=== PATIENT | female | born 1985 | race Caucasian/White ===

== ENCOUNTER 2023-10-06 10:51 | Outpatient (CLI) | payer OTHER, SELFPAY ==
[2023-10-06 11:23] LABS: Basophils Percent Auto 0.5 % (0.2-1.2); Eosinophils Absolute Auto 0.3 K/mm3 (0-0.3); Hematocrit 36.8 % (37.0-47.0); Hemoglobin 12.3 g/dL (12.0-15.0); Immature Granulocyte Absolute 0.09 K/mm3 (0.00-0.031); Lymphocytes Absolute Auto 1.86 K/mm3 (0.9-3.2); Lymphocytes Percent Auto 21.5 % (18.3-44.2); Mean Corpuscular HGB Conc 33.4 g/dl (32-36); Mean Corpuscular Hemoglobin 30.1 pg (26-34); Mean Platelet Volume 10.5 fl (7.4-10.4); Monocytes Absolute Auto 0.4 K/mm3 (0.1-0.6); Platelet Count Result 191 k/mm3 (150-375); Red Blood Count 4.09 M/mm3 (4.2-5.4); Red Cell Distribution Width 13.3 % (11.5-14.5); White Blood Count 8.7 K/mm3 (4.5-10.0)
[2023-10-06 12:23] LABS: HIV 1/2 Ab P24 Ag Result Negative (Negative)
[2023-10-06 12:36] LABS: Hepatitis B Surface Antigen Negative (Negative); Rubella IgG Antibody 7.5 IU/ML
[2023-10-06 13:13] LABS: Rapid Plasma Reagin Non-Reactive (NonReactive)
== END 2023-10-06 10:52 | disposition home or self-care (01) ==
LOC: ANHLAB 10:53
PROVIDERS: PCP Family Medicine; Visit Provider Student in an Organized Health Care Education/Training Program
DX: N94.89 Other specified conditions associated with female genital organs and menstrual cycle (principal)
CPT/HCPCS: 36415; 84702; 85025; 86592; 86644; 86703; 86747; 86762; 86787; 86850; 86900; 86901; 87086; 87088; 87340; G0432

== ENCOUNTER 2024-01-16 08:24 | Outpatient (CLI) | payer OTHER, SELFPAY ==
[2024-01-16 10:15] LABS: Basophils Absolute Auto 0.1 K/mm3 (0.0-0.1); Basophils Percent Auto 0.7 % (0.2-1.2); Eosinophils Absolute Auto 0.3 K/mm3 (0-0.3); Eosinophils Percent Auto 3.2 % (0-4.4); Hematocrit 36.2 % (37.0-47.0); Hemoglobin 11.9 g/dL (12.0-15.0); Immature Granulocyte Absolute 0.44 K/mm3 (0.00-0.031); Immature Granulocyte Percent A 4.2 % (0-0.5); Lymphocytes Absolute Auto 1.29 K/mm3 (0.9-3.2); Lymphocytes Percent Auto 12.5 % (18.3-44.2); Mean Corpuscular HGB Conc 32.9 g/dl (32-36); Mean Corpuscular Hemoglobin 31.1 pg (26-34); Mean Corpuscular Volume 94.5 fl (80-100); Mean Platelet Volume 10.6 fl (7.4-10.4); Monocytes Absolute Auto 0.4 K/mm3 (0.1-0.6); Monocytes Percent Auto 3.5 % (2.6-8.5); Neutrophils Absolute Auto 7.9 K/mm3 (1.3-6.7); Neutrophils Percent Auto 75.9 % (45.5-73.1); Platelet Count Result 163 k/mm3 (150-375); Red Blood Count 3.83 M/mm3 (4.2-5.4); Red Cell Distribution Width 13.2 % (11.5-14.5); White Blood Count 10.4 K/mm3 (4.5-10.0)
[2024-01-16 10:23] LABS: Glucose 1 Hour PP 50gm Dose 154 mg/dL
[2024-01-16 11:04] LABS: HIV 1/2 Ab P24 Ag Result Negative (Negative)
[2024-01-17 11:44] LABS: Rapid Plasma Reagin Non-Reactive (NonReactive)
== END 2024-01-16 08:25 | disposition home or self-care (01) ==
LOC: ANHLAB 08:26
PROVIDERS: PCP Family Medicine; Visit Provider Obstetrics & Gynecology
DX: Z34.90 Encounter for supervision of normal pregnancy, unspecified, unspecified trimester (principal); Z3A.00 Weeks of gestation of pregnancy not specified
CPT/HCPCS: 36415; 82947; 85025; 86592; 86703; G0432

== ENCOUNTER 2024-01-19 09:38 | Observation (INO) | payer OTHER, SELFPAY ==
--- NOTE | 2024-01-19 09:38 | OBADM ---
This patient, Yoly Tejeda, admitted to the OB room OB Post 116 for observation. pt states she has been having vaginal spotting, light brown collar when she wipes. denies contractions. Patient/family oriented to hospital policies and general routines including ID bracelet, bed and alarms, visiting hours, pain management, procedures, bathroom and other care routines, personal items, smoking policy, room service/diet, and visiting hours. Patient/Family are encouraged to report perceived risks to care and to ask questions if they do not understand what they are told or what they should do.
[2024-01-19 09:55] VITALS: BP 127/87; PULSE 93
[2024-01-19 11:43] LABS: Add Urine Microscopic? YES; Appearance Urine Clear (Clear); Bacteria Urine 2+ /hpf; Bilirubin Urine Negative (Negative); Blood Urine 3+ (Negative); Color Urine Yellow (Yellow); Glucose Urine UA Negative (Negative); Ketones Urine Negative (Negative); Leukocyte Esterase Ur 2+ LEU/UL (Negative); Need Manual Microscopic Reviewed; Nitrate Urine Negative (Negative); Non Pathogenic Casts 0-2; Protein Urine Negative (Negative); RBC Urine 0-2 /hpf (0-2); Specific Grav Ur 1.007 (1.001-1.035); Squamous Epithelial Cell Urine Many /hpf (Few); WBC Urine 0-5 /hpf (0-3)
--- NOTE | 2024-01-22 08:16 | PM.OBTRLD ---
OB - Triage/Final Diagnosis Visit Information Reason for evaluation: threatened labor Comments/Additional reasons for admission: I have assessed the risk for this patient, Yoly Tejeda, and determined that she would benefit from observation care. Evaluation Laboratory results: Laboratory Tests 01/19/24 10:10 Urine Color Yellow Urine Appearance Clear Urine pH 8.0 Ur Specific [place] 1.007 Urine Protein Negative Urine Glucose (UA) Negative Urine Ketones Negative Ur Blood (Man) 3+ H Urine Nitrate Negative Urine Bilirubin Negative Urine Urobilinogen 1.0 Ur Leukocyte Esterase 2+ H Add Ur Microanalysis Reviewed Urine RBC 0-2 Urine WBC 0-5 Ur Squamous Epith Cells Many H Urine Bacteria 2+ H Urine Casts 0-2
== END 2024-01-19 11:20 ==
PROVIDERS: Admitting Provider Obstetrics & Gynecology; PCP Family Medicine; Visit Provider Obstetrics & Gynecology
DX: O47.03 False labor before 37 completed weeks of gestation, third trimester (principal); Z3A.32 32 weeks gestation of pregnancy
CPT/HCPCS: 81001; 87086; 87088; G0378; G0379

== ENCOUNTER 2024-03-05 13:15 | Outpatient (CLI) | payer OTHER, SELFPAY ==
--- NOTE | 2024-03-05 13:55 | PM.IMHP ---
H&P: HPI History of Present Illness Date/Time: 03/05/24 13:55 38-year-old 5 para 4 004 female presents for delivery. She has had 1 vaginal delivery followed by 3 C sections, 1st for breech presentation rest repeats. This has been complicated only by advanced maternal age, for which she has had evaluation in all this normal. No other issues or concerns. Also desires permanent sterilization in the form of bilateral salpingectomy. She does understand permanence, failure rate, increased risk of ectopic and regret and strongly desires to proceed. Chief Complaint: Review of Systems Review of Systems: All systems reviewed & are unremarkable except as noted in HPI and below PMFSH Past Medical History Medical History Abnormal glucose tolerance in Hernia Menometrorrhagia Suppression of menses Thrombocytopenia with 1st Surgical History Surgical History Delivery by section 2010- Breech 2014- repeat 2016 - repeat Hx of cholecystectomy Family History Family History Other No pertinent family history in first degree relatives Social History Social History Smoking status: Never smoker Alcohol intake: never Substance use: never Substance use type: does not use Current Housing: Decline to Answer Concerned About Future Housing: Decline to Answer Difficulty Paying Gas/Electric Bills: Decline to Answer Difficulty Paying for Meds: Decline to Answer Currently Unemployed: Decline to Answer Education: Decline to Answer Difficulty w/ Childcare or Family Care: Decline to Answer Living arrangements: with family Occupation/Education: occupation Gender identity (if verbalized by the patient): Female Spiritual care concerns: No Meds Home Medications and Allergies Home Medications Medication Instructions Recorded Confirmed Type docosahexaenoic acid 200 mg mg PO 12/27/23 02/28/24 History capsule ( DHA) Allergies Allergy/AdvReac Type Severity Reaction Status Date / Time Sulfa (Sulfonamide Allergy Unknown Blister Verified 02/28/24 09:07 Antibiotics) sulfanilamide Allergy Unknown Blister Verified 02/28/24 09:07 Exam Resp: Effort & Inspection: normal respiratory effort Auscultation: clear to auscultation bilaterally Cardio: Rate: regular rate Rhythm: regular rhythm GI: Inspection: scar GI Palp: No abdominal tenderness Auscultation: normal bowel sounds : External Female Exam: normal external appearance Speculum Exam - Vagina: normal appearance of the vagina Speculum Exam - Cervix: normal appearance of the cervix Bimanual exam- vagina & uterus: enlarged ( fundal height 40cm heart tone 140) Assessment and Plan Assessment and plan (1) 39 weeks gestation of : Code(s): Z3A.39 - 39 weeks gestation of Status: Acute (2) Previous delivery affecting : Code(s): O34.219 - Maternal care for unspecified type scar from previous delivery Status: Acute (3) Encounter for female sterilization procedure: Code(s): Z30.2 - Encounter for sterilization Status: Acute Plan 1. Proceed with repeat low-transverse section with bilateral salpingectomy.
[2024-03-05 14:07] LABS: Hematocrit 39.6 % (37.0-47.0); Hemoglobin 13.6 g/dL (12.0-15.0); Mean Corpuscular HGB Conc 34.3 g/dl (32-36); Mean Corpuscular Hemoglobin 31.9 pg (26-34); Mean Platelet Volume 11.1 fl (7.4-10.4); Platelet Count Result 168 k/mm3 (150-375); Red Blood Count 4.26 M/mm3 (4.2-5.4); Red Cell Distribution Width 13.2 % (11.5-14.5); White Blood Count 8.8 K/mm3 (4.5-10.0)
[2024-03-06 09:48] LABS: Rapid Plasma Reagin Non-Reactive (NonReactive)
== END 2024-03-05 13:16 | disposition home or self-care (01) ==
LOC: ANHLAB 13:17
PROVIDERS: PCP Family Medicine; Visit Provider Obstetrics & Gynecology
DX: O34.219 Maternal care for unspecified type scar from previous cesarean delivery (principal); Z3A.39 39 weeks gestation of pregnancy; Z30.2 Encounter for sterilization
CPT/HCPCS: 36415; 85027; 86592; 86850; 86900; 86901

== ENCOUNTER 2024-03-06 05:48 | Inpatient (IN) | payer OTHER, SELFPAY ==
--- NOTE | 2024-02-16 16:12 | PC.NURSE ---
requisition for lab draw,C/S pre-op instructions and RSV information sent to patient ,due to pre-admit being phone interview
--- NOTE | 2024-03-05 14:00 | HP_ITS ---
This report was moved to the correct visit on 03/11/2024. The original report was signed by Elpidio Olson MD on 03/05/24 1400. H&P: HPI History of Present Illness Date/Time: 03/05/24 13:55 38-year-old 5 para 4 004 female presents for delivery. She has had 1 vaginal delivery followed by 3 C sections, 1st for breech presentation rest repeats. This has been complicated only by advanced maternal age, for which she has had evaluation in all this normal. No other issues or concerns. Also desires permanent sterilization in the form of bilateral salpingectomy. She does understand permanence, failure rate, increased risk of ectopic and regret and strongly desires to proceed. Chief Complaint: Review of Systems Review of Systems: All systems reviewed & are unremarkable except as noted in HPI and below PMFSH Past Medical History Medical History Abnormal glucose tolerance in Hernia Menometrorrhagia Suppression of menses Thrombocytopenia with 1st Surgical History Surgical History Delivery by section 2011- Breech 2014- repeat 2016 - repeat Hx of cholecystectomy Family History Family History Other No pertinent family history in first degree relatives Social History Social History Smoking status: Never smoker Alcohol intake: never Substance use: never Substance use type: does not use Current Housing: Decline to Answer Concerned About Future Housing: Decline to Answer Difficulty Paying Gas/Electric Bills: Decline to Answer Difficulty Paying for Meds: Decline to Answer Currently Unemployed: Decline to Answer Education: Decline to Answer Difficulty w/ Childcare or Family Care: Decline to Answer Living arrangements: with family Occupation/Education: occupation Gender identity (if verbalized by the patient): Female Spiritual care concerns: No Meds Home Medications and Allergies Home Medications Medication Instructions Recorded Confirmed Type docosahexaenoic acid 200 mg mg PO 12/27/23 02/28/24 History capsule ( DHA) Allergies Allergy/AdvReac Type Severity Reaction Status Date / Time Sulfa (Sulfonamide Allergy Unknown Blister Verified 02/28/24 09:07 Antibiotics) sulfanilamide Allergy Unknown Blister Verified 02/28/24 09:07 Exam Resp: Effort & Inspection: normal respiratory effort Auscultation: clear to auscultation bilaterally Cardio: Rate: regular rate Rhythm: regular rhythm GI: Inspection: scar GI Palp: No abdominal tenderness Auscultation: normal bowel sounds : External Female Exam: normal external appearance Speculum Exam - Vagina: normal appearance of the vagina Speculum Exam - Cervix: normal appearance of the cervix Bimanual exam- vagina & uterus: enlarged ( fundal height 40cm heart tone 140) Assessment and Plan Assessment and plan (1) 39 weeks gestation of : Code(s): Z3A.39 - 39 weeks gestation of Status: Acute (2) Previous delivery affecting : Code(s): O34.219 - Maternal care for unspecified type scar from previous delivery Status: Acute (3) Encounter for female sterilization procedure: Code(s): Z30.2 - Encounter for sterilization Status: Acute Plan 1. Proceed with repeat low-transverse section with bilateral salpingectomy. This report may have been done utilizing a voice recognition system. Attempts have been made to correct errors. However, there may be uncorrected grammatical, spelling, and recognition errors present. Report Initialized date/time: Elpidio Olson MD 03/05/241399 Electronically signed by: Elpidio Olson MD 03/05/241399 [facility]
[2024-03-06] VITALS (47 sets, daily range): BP systolic 86–217; BP diastolic 57–199; PULSE 49–136; RESP 14–18; TEMP 36.2–36.9; O2SAT 66–100; BMI 28.9
[2024-03-06] MEDS: ACETAMINOPHEN 500 MG TABLET 1000 MG PO (06:27)
--- NOTE | 2024-03-06 06:31 | LDADM ---
This patient, Yoly Tejeda, was admitted to Labor/Delivery/Recovery 120 on 03/06/24 at 05:48. Plans for labor, pain management and were discussed with patient. Patient/family oriented to hospital policies and general routines including ID bracelet, bed and alarms, visiting hours, pain management, procedures, bathroom and other care routines, personal items, smoking policy, room service/diet and guest tray routines, security routines, and visiting hours. Patient/Family are encouraged to report perceived risks to care and to ask questions if they do not understand what they are told or what they should do. See OBIX for further documentation.
[2024-03-06] MEDS: LACTATED RINGERS 1,000 ML 125 ML IV CONT (06:36)
--- NOTE | 2024-03-06 07:17 | WPDHPUPDATE1 ---
History and Physical Update Update Date/Time: 03/06/24 07:17 History and Physical has been reviewed, including an updated exam of the patient. There are NO changes in the patient's condition. Risks, benefits, and alternatives have been discussed and questions answered. Patient agrees to proceed with procedure.
[2024-03-06] MEDS: ONDANSETRON INJ 4 MG/2 ML VIAL IV PUSH (07:22)
[2024-03-06] MEDS: FAMOTIDINE 20 MG/2 ML VIAL IV PUSH (07:23)
[2024-03-06 07:43] LABS: HIV 1/2 Ab P24 Ag Result Negative (Negative)
[2024-03-06] MEDS: ceFAZolin 2 GM/D5W 50 ML 2 GM/50 ML BAG IVPB (07:49)
--- NOTE | 2024-03-06 07:50 | P.PNAN_ITS ---
Anes - Initial Pre Proc Eval Procedure: Operation Date: 03/06/24 07:30 Proposed Procedures p Repeat Section with Tubal Ligation - Elpidio Olson MD Date/Time: 03/06/24 07:50 Surgeon: Elpidio Olson MD Pre Op Diagnosis: C/S Patient Data Age: 38 Gender: F Height: 1.6 m Weight: 74 kg Last Vital Signs Pulse 86 03/06/24 06:30 BP 98/83 L 03/06/24 06:30 O2 Del Method Room Air 03/06/24 06:30 Allergies Allergy/AdvReac Type Severity Reaction Status Date / Time Sulfa (Sulfonamide Allergy Unknown Blister Verified 02/28/24 09:07 Antibiotics) sulfanilamide Allergy Unknown Blister Verified 02/28/24 09:07 Home Medications Medication Instructions Recorded Confirmed Type docosahexaenoic acid 200 mg mg PO 12/27/23 02/28/24 History capsule ( DHA) Laboratory Tests 03/06/24 06:46 HIV 1&2 Ab/P24 Ag 4thGn Negative (Negative) Patient hx anesthesia problems: none Family hx anesthesia problems: none Results Review: All pre-operative results and documents have been reviewed as part of the pre- operative evaluation. [facility] Past Medical History Medical History Abnormal glucose tolerance in Hernia Menometrorrhagia Suppression of menses Thrombocytopenia with 1st Surgical History Surgical History Delivery by section 2010- Breech 2013- repeat 2016 - repeat Hx of cholecystectomy Family History Family History Other No pertinent family history in first degree relatives Social History Social History Smoking status: Never smoker Alcohol intake: never Substance use: never Substance use type: does not use Do You Feel Safe in your Home?: Yes Lack of Transportation: No Lack of Food: Never True Current Housing: I Have Housing Concerned About Future Housing: No Difficulty Paying Gas/Electric Bills: No Difficulty Paying for Meds: No Currently Unemployed: No Education: Bachelor's Degree Difficulty w/ Childcare or Family Care: No Living arrangements: with family Occupation/Education: occupation Gender identity (if verbalized by the patient): Female Spiritual care concerns: No Anes - Eval Final PreProcedure Day of Procedure 03/06/24 07:50 Patient weight: normal Heart: regular rate and rhythm Lungs: clear to auscultation and normal air movement Airway: Mallampati scale class II Neurological: alert and oriented Last oral intake: >/= 8 hours ASA classification: II Emergent: no Anesthetic plan: proceed Anesthesia type and monitoring: regional spinal Results Review: All pre-operative results and documents have been reviewed as part of the pre- operative evaluation. Informed Consent: The patient's anesthetic plan and its attendant risks and benefits were discussed with the patient/family/POA. Questions were solicited and answers provided to the satisfaction of the patient/family/POA.
--- NOTE | 2024-03-06 08:44 | W.PM.OBCSD ---
OB - Delivery Note Procedure Delivery date: 03/06/24 Pre-op diagnosis: Previous Delivery and Other (Undesired fertility) Post-op Diagnosis: Same Delivery monitor: External FHT and External Uterine Prior to decision for section, ACOG/SMFM labor guidelines were considered and discussed with the patient and staff. Decision made to proceed with the section.: Yes Procedure Performed: Repeat and Tubal Ligation Surgeon: Elpidio Olson MD Anesthesia type: Spinal Description of Procedure/Findings: patient prepped and draped in usual manner this procedure. Pfannenstiel incision was made and carried down to the fascia which was then extended bilaterally the length of the skin incision. Superiorly and inferiorly dissected away from the rectus muscles and the peritoneum was readily entered. Bladder flap developed without difficulty and uterus was scored a low transverse manner with clear fluid noted. Baby was delivered without difficulty, vertex 1st with nuchal cord noted and reduced. Cord clamped cut placenta was removed manually. Uterus was exteriorized cleared of membranes and clots and closed using 0 Monocryl running interlocking manner with good approximation hemostasis noted. One small area of oozing was rendered hemostatic with a [id number] suture. All subfascial tissue was noted hemostatic and then fascia was approximated using 0 Vicryl from left angle midline and the right angle midline with good approximation noted. Subcutaneous tissue was approximated using 0 plain suture and tessie were used to approximate the skin edges. Prior to returning the uterus to the abdomen, it should be noted that the bilaterally tubes were elevated and doubly knotted suture and removal of tubes bilaterally. After the uterus was returned to the abdomen the tubal stumps were noted be hemostatic and intact. At the end of the procedure patient was sent to recovery room in stable condition. Estimated Blood Loss: 630 Drains: Yes ( Reid) Packing: No Pathology: Yes ( bilateral tubes) Complications: No immediate complications Condition: Stable Disposition: Floor [place] Baby Gestational Age by Date: 39 Infant gender: Male presentation: vertex Placenta delivery description: Manual Removal Cord Vessel Description: 3 Vessels, Nuchal Cord and Reduced
[2024-03-06] MEDS: KETOROLAC 15 MG/ML VIAL (*BKC) IV PUSH ×3 (09:06→21:29)
[2024-03-06] MEDS: HYDROcodone/acetaminophen (*CRX) 10-325 MG TABLET 1 TAB PO (09:06)
[2024-03-06] MEDS: LIDOCAINE 5% PATCH 1 PATCH (09:13)
[2024-03-06] MEDS: fentaNYL CITRATE INJ (*CRX) 100 MCG/2 ML VIAL 50 MCG IV PUSH ×2 (10:49→11:26)
[2024-03-06] MEDS: HYDROmorphon 0.2MG/ML PCA(*CRX 6 MG/30 ML PCA.VIAL 0.5 MG IV CONT (12:22)
[2024-03-06] MEDS: SIMETHICONE 80 MG TAB.CHEW PO ×2 (12:38→17:07)
[2024-03-06] MEDS: ACETAMINOPHEN 325 MG TABLET 650 MG PO ×2 (12:38→21:29)
--- NOTE | 2024-03-06 13:28 | PC.NURSE ---
On 03/06/24, the student, Shirley Crocker, provided care and completed [facility] documentation on this patient. I have reviewed the student's documentation and agree with the findings.
--- NOTE | 2024-03-06 15:21 | PC.NURSE ---
1500. Met with patient to assess and discuss needs related to feeding. Mother states it is her intention to exclusively breastfeed. Infant is currently in level 2 due to low temperature after delivery. Mom just got back to her room after visiting down in level 2 nursery to feed him. Mom reports feeding went well and she nursed for 30 min. We reviewed basics and encouraged mom breastfeed 8-12 times in 24 hours (approximately every 2-3 hours), watching for early feeding cues. If infant is sleepy, unwrap and place baby skin to skin. Discussed signs that infant is effectively , i.e. sufficient voids and stools, jaundice within normal limits, <10% weight loss from . Mother educated on milk production, supply and demand, and expectations for in the immediate period. Encouraged feeding on demand and feeding durations of 15 minutes or greater. Discussed breast/nipple care with good hand hygiene, signs of a correct latch, listening for infant swallows and documenting feedings on the feeding sheet. Mother instructed to call for assistance if will not feed every 3 hours, if there is discomfort with , or if mother has any other questions or concerns. resources provided including the Mom and Baby Guide and name/number on communication board. Mother verbalized understanding. Updated patient?s primary RN with education provided.??
[2024-03-06] MEDS: DOCUSATE SODIUM 100 MG CAPSULE PO (17:07)
[2024-03-06] MEDS: DEXTROSE 5%/0.45% SOD CHL 1,000 ML 125 ML IV CONT (18:50)
[2024-03-07 03:30] VITALS: RESP 12; O2SAT 100
[2024-03-07] MEDS: ACETAMINOPHEN 325 MG TABLET 650 MG PO ×4 (03:48→22:15)
[2024-03-07] MEDS: KETOROLAC 15 MG/ML VIAL (*BKC) IV PUSH (03:54)
[2024-03-07 03:58] VITALS: BP 120/53; PULSE 67; RESP 14; TEMP 37; O2SAT 100
[2024-03-07 05:10] LABS: Basophils Percent Auto 0.3 % (0.2-1.2); Eosinophils Absolute Auto 0.3 K/mm3 (0-0.3); Eosinophils Percent Auto 2.3 % (0-4.4); Hematocrit 32.4 % (37.0-47.0); Hemoglobin 11.3 g/dL (12.0-15.0); Immature Granulocyte Absolute 0.15 K/mm3 (0.00-0.031); Immature Granulocyte Percent A 1.3 % (0-0.5); Lymphocytes Percent Auto 14.2 % (18.3-44.2); Mean Corpuscular HGB Conc 34.9 g/dl (32-36); Mean Corpuscular Hemoglobin 31.7 pg (26-34); Mean Platelet Volume 11.3 fl (7.4-10.4); Monocytes Percent Auto 8.1 % (2.6-8.5); Neutrophils Absolute Auto 8.8 K/mm3 (1.3-6.7); Neutrophils Percent Auto 73.8 % (45.5-73.1); Platelet Count Result 147 k/mm3 (150-375); Red Blood Count 3.56 M/mm3 (4.2-5.4); Red Cell Distribution Width 13.2 % (11.5-14.5); White Blood Count 11.9 K/mm3 (4.5-10.0)
[2024-03-07] MEDS: DOCUSATE SODIUM 100 MG CAPSULE PO ×2 (08:21→17:18)
[2024-03-07] MEDS: SIMETHICONE 80 MG TAB.CHEW PO ×3 (08:22→17:18)
[2024-03-07 08:30] VITALS: BP 110/53; PULSE 74; RESP 18; TEMP 36.6; O2SAT 99
--- NOTE | 2024-03-07 09:41 | P.PNOB_ITS ---
OB - PN: Subj Subjective Date/time seen: 03/07/24 09:41 S: Pain well tolerated. Diet ambulation without difficulty. Voiding after catheter removed without difficulty. O:VSS afebrile Abdomen positive bowel sounds soft, incision covered Labs: Noted A: Postoperative day 1 status post repeat with bilateral salpingectomy. Thus far good postoperative course without issue. P: Routine postoperative care. At this point patient likely will want to stay 2 more days has baby is on antibiotics and she is not in any particular hurry to be discharged. I had discussed with her that on Monday if baby still there she can be converted to no care bed and fill prescriptions etc. and come and go if desires. OB - PN: Obj Data Labs 03/07/24 04:25 Labs: Laboratory Results - last 24 hr 03/07/24 04:25 WBC 11.9 H RBC 3.56 L Hgb 11.3 L Hct 32.4 L MCV 91.0 MCH 31.7 MCHC 34.9 RDW 13.2 Plt Count 147 L MPV 11.3 H Immature Gran % (Auto) 1.3 H Neut % (Auto) 73.8 H Lymph % (Auto) 14.2 L [place] % (Auto) 8.1 Eos % (Auto) 2.3 Baso % (Auto) 0.3 Lymph # (Auto) 1.70 [place] # (Auto) 1.0 H Eos # (Auto) 0.3 Baso # (Auto) 0.0 Abs Immat Gran (auto) 0.15 H Absolute Neuts (auto) 8.8 H Absolute Nucleated RBC 0.000 Nucleated RBC % 0.0 OB - PN A/P Time Spent With Patient Time: Total time spent is greater than 50% in coordination of care (as documented) at patient's floor/unit and/or counseling patient:
--- NOTE | 2024-03-07 09:44 | PM.OBDSVD ---
DS: Admitting Diagnosis Discharge Date 03/09/2024 Admitting Diagnosis DS: Discharge Diagnosis Discharge Diagnosis (1) , delivered: Code(s): O80 - Encounter for full-term uncomplicated delivery Status: Acute OB - DS: Summary OB Procedures : None OB Procedures Intrapartum: low cervical, transverse and Tubal ligation OB Procedures: : None Peripartum Data Procedures: Procedures Operation Date: 03/06/24 07:30 Actual Procedure Side Surgeon p Section Elpidio Olson MD Time Spent with Patient Time attestation: Total time spent providing and/or coordinating discharge services: DS: Data Data Completed and Pending Pending studies at discharge: Pending at discharge 03/06/24 08:34 Surgical [PTH] Routine Labs on day of discharge: Labs from last 24 hours 03/07/24 04:25 WBC 11.9 H RBC 3.56 L Hgb 11.3 L Hct 32.4 L MCV 91.0 MCH 31.7 MCHC 34.9 RDW 13.2 Plt Count 147 L MPV 11.3 H Immature Gran % (Auto) 1.3 H Neut % (Auto) 73.8 H Lymph % (Auto) 14.[address] [place] % (Auto) 8.1 Eos % (Auto) 2.3 Baso % (Auto) 0.3 Lymph # (Auto) 1.70 [place] # (Auto) 1.0 H Eos # (Auto) 0.3 Baso # (Auto) 0.0 Abs Immat Gran (auto) 0.15 H Absolute Neuts (auto) 8.8 H Absolute Nucleated RBC 0.000 Nucleated RBC % 0.0 Discharge Plan Discharge Attending physician on discharge: Elpidio Olson Discharging Clinician: Elpidio Olson Patient Disposition: Home, Self-Care Activity: may shower, no straining, follow weight bearing status and pelvic rest Diet: as tolerated Wound Care Instructions: incision open to air Discharge Instructions: Return to office March 12 or for staple removal. Patient Instructions: Antibiotic Form Stand Alone Forms: General Discharge Information Follow-up/Referrals: Elpidio Olson MD [Physician] - 3 Weeks Discharge Medications: New hydrocodone-acetaminophen 5-325 mg Tablet 1 tablet PO Q3H PRN (Reason: Breakthrough Pain Rated 4-6) Qty: 30 0RF ibuprofen 600 mg Tablet 600 mg PO Q6H Qty: 30 0RF Continued DHA 200 mg capsule PO Date of admission: 03/06/24 05:48 Primary Care Provider: Walt Tejeda Admitting Provider: Elpidio Olson Attending physician on admission: Elpidio Olson Condition: Stable
[2024-03-07] MEDS: LIDOCAINE 5% PATCH 1 PATCH TRANSDERM (10:02)
[2024-03-07] MEDS: IBUPROFEN 600 MG TABLET PO ×3 (10:02→22:15)
--- NOTE | 2024-03-07 10:27 | WPDANLDPN2 ---
Anes-Prog Note L&D Date/Time: 03/07/24 10:27 Comfortable throughout: section Neuraxial method: spinal Epidural/Spinal procedure site: clean & non-tender Neuro status: Neuro function grossly intact. Cardiovascular status: normal Respiratory status: normal Airway patency: baseline Mental status: baseline Post-Op hydration status: normal Vital Signs: Last Vital Signs Temp 36.6 C 03/07/24 08:30 Pulse 74 03/07/24 08:30 Resp 18 03/07/24 08:30 BP 110/53 L 03/07/24 08:30 Pulse Ox 99 03/07/24 08:30 O2 Del Method Room Air 03/06/24 19:35 Pain score (VAS): 2/10 I/O: Intake & Output 03/06/24 03/07/24 03/07/24 23:59 07:59 15:59 Intake Total 1026 1004 Output Total 1400 Balance -374 1004 Post-procedural complaints: none Patient feedback: Patient satisfied with anesthetic care.
--- NOTE | 2024-03-07 13:40 | PC.NURSE ---
1210. Mother verbalizes she is able to independently latch infant with appropriate positioning and alignment. She denies any nipple discomfort and is responsively . is currently meeting outcomes for weight, output, jaundice, blood sugar and feeding frequencies of 8-12 times in 24 hours. Mother declines any additional assistance or education at this time. Mother is encouraged to call for assistance if her doesn?t latch, pain with latching, questions or concerns. Mother voiced understanding of information shared along with the mom/baby guide for an additional resource. Reported to the Primary RN.
[2024-03-07 18:41] VITALS: BP 115/57; PULSE 90; RESP 16; TEMP 36.9; O2SAT 98
[2024-03-08] MEDS: ACETAMINOPHEN 325 MG TABLET 650 MG PO (04:37)
[2024-03-08] MEDS: IBUPROFEN 600 MG TABLET PO (04:38)
[2024-03-08 08:45] VITALS: BP 120/68; PULSE 80; RESP 16; TEMP 36.6; O2SAT 99
[2024-03-08] MEDS: DOCUSATE SODIUM 100 MG CAPSULE PO (08:55)
[2024-03-08] MEDS: SIMETHICONE 80 MG TAB.CHEW PO (08:55)
[2024-03-09 12:50] VITALS: BP 141/60; PULSE 79; RESP 18; TEMP 36.4; O2SAT 100
== END 2024-03-08 11:05 | disposition home or self-care (01) | DRG 785 ==
LOC: ANHLDR 05:50 → ANHOB2 12:03
PROVIDERS: Admitting Provider Obstetrics & Gynecology; PCP Family Medicine; Visit Provider Obstetrics & Gynecology
PROC: 10D00Z1 Extraction of Products of Conception, Low, Open Approach (ICD-10-PCS; CPT 59514; principal; 2024-03-06 07:30)
DX: O34.219 Maternal care for unspecified type scar from previous cesarean delivery (principal); Z90.49 Acquired absence of other specified parts of digestive tract; Z30.2 Encounter for sterilization; O69.81X0 Labor and delivery complicated by cord around neck, without compression, not applicable or unspecified; Z3A.39 39 weeks gestation of pregnancy; Z37.0 Single live birth
CPT/HCPCS: 36415; 85025; 86703; 88302; A9270; G0432; J0690; J1170; J1885; J2371; J2405; J2590; J3010; J7120

== ENCOUNTER 2024-06-27 13:19 | Emergency (ER) | payer OTHER, SELFPAY ==
[2024-06-27 13:39] VITALS: BP 138/72; PULSE 79; RESP 16; TEMP 36.4; O2SAT 100
--- NOTE | 2024-06-27 13:48 | ED.URI ---
HPI - URI/Sore Throat General Chief Complaint: Upper Respiratory Infection Stated Complaint: CONGESTION/COUGH Time Seen by Provider: 06/27/24 13:48 Source: patient, RN notes reviewed and old records reviewed Mode of arrival: ambulatory Limitations: no limitations History of Present Illness HPI Narrative: 39 year old female who presents to express care with complaints of cough congestion with voice hoarseness since March.. Patient reports that she had baby in March and initial symptoms started in March and have not resolved. Patient reports that it was a little better in May and then returned. Patient does have seasonal allergies has not taken anything for symptoms on routine basis. except for some Zyrtec for the past few days. Patient is breast feeding. Patient states that baby is finally sleeping through the night but she can't rest because cough is worse at night. Patient reports some burning sensation to upper chest with cough. and sneezing. MD elicited complaint: cough and other (congestion and hoarseness) Pertinent past history: seasonal allergies Onset (ago): month(s) (2) Pain scale (0-10): 3 Description of mucous: clear Able to tolerate fluids by mouth: Yes Treatments prior to arrival: other (took few days of Zyrtec) Related Data Home Medications ?Medication ?Instructions ?Recorded ?Confirmed ?Last Taken ?Type docosahexaenoic acid 200 mg mg PO 12/27/23 02/28/24 Unknown History capsule ( DHA) Allergies Allergy/AdvReac Type Severity Reaction Status Date / Time Sulfa (Sulfonamide Allergy Unknown Blister Verified 06/27/24 13:39 Antibiotics) sulfanilamide Allergy Unknown Blister Verified 06/27/24 13:39 Review of Systems Review of Systems: CONSTITUTIONAL: Reports malaise, no chills, sweats, or fever. EYES: Denies visual changes, redness, or discharge. dark circles under both eyes ENT: Reports rhinorrhea, congestion, sinus pain, no otalgia and no sore throat. CARDIOVASCULAR: Denies chest pain, palpitations, or edema. RESPIRATORY: Reports cough.? Denies dyspnea.reports some upper chest burning with cough and sneezing GASTROINTESTINAL: Denies abdominal pain, nausea, vomiting, diarrhea SKIN: Denies rash or itching. MUSCULOSKELETAL: Denies myalgia. NEUROLOGIC: Denies headache. All systems reviewed & are unremarkable except as noted in HPI and below PMFSH Past Medical History Medical History Abnormal glucose tolerance in Suppression of menses Menometrorrhagia Hernia Thrombocytopenia with 1st Surgical History Surgical History Hx of tubal ligation 03/06/2025 Previous section March Hx of cholecystectomy Delivery by section 2010- [place] 2013- repeat 2016 - repeat Family History Family History Other No pertinent family history in first degree relatives Social History Social History Smoking status: Never smoker Alcohol intake: never Substance use: never Substance use type: does not use Do You Feel Safe in your Home?: Yes Lack of Transportation: No Lack of Food: Never True Current Housing: I Have Housing Concerned About Future Housing: No Difficulty Paying Gas/Electric Bills: No Difficulty Paying for Meds: No Currently Unemployed: No Education: Bachelor's Degree Difficulty w/ Childcare or Family Care: No Living arrangements: with family Occupation/Education: occupation Gender identity (if verbalized by the patient): Female Spiritual care concerns: No Comments At time of signature, agree with nursing past medical, surgical, social and family history. There is no relevant family history pertinent to the presenting complaint Exam Narrative: GENERAL: Well-appearing, well-nourished, and in no acute distress. HEAD: Normocephalic EYES: PERRLA, conjunctivae clear ENT: Nares clear, turbinates edematous and erythematous, clear discharge. Mucous membranes moist. TM pearly grayson with dull light reflex bilaterally; no tragal tenderness. Oropharynx erythematous without lesions. Tonsils not enlarged and without exudate, no drooling, no hoarseness, no trismus, uvula midline.post nasal drainage noted NECK: Supple. No lymphadenopathy CHEST: Clear to auscultation, breath sounds equal. No wheezing, rhonchi, rales, or stridor. No respiratory distress, speaks in full sentences.dry hacking cough SAO2 100% on room air HEART: Regular rate and rhythm. No murmur heard. SKIN: Warm, dry, no rash. NEURO: Alert and oriented x3. PSYCH: Normal mood and affect Course Course Emergency Course: Patient is aware of diagnosis, understands and agrees to treatment plan.? Anticipatory guidance given.? Patient agrees to follow-up as directed and is aware of reasons to seek care at the emergency department. Portions of this record may have been created with voice recognition software Level of Care: Express Care Visit Vital Signs Vital signs: Vital Signs Temperature 36.4 C L 06/27/24 13:39 Pulse Rate 79 06/27/24 13:39 Respiratory Rate 16 06/27/24 13:39 Blood Pressure 138/72 06/27/24 13:39 Pulse Oximetry 100 06/27/24 13:39 Temperature 36.4 C L 06/27/24 13:39 Pulse Rate 79 06/27/24 13:39 Respiratory Rate 16 06/27/24 13:39 Blood Pressure 138/72 06/27/24 13:39 Pulse Oximetry 100 06/27/24 13:39 Reviewed MDM - URI/Sore Throat MDM Narrative Medical decision making narrative: Differential diagnosis considered: [place]al[place] virus, strep pharyngitis, allergic rhinitis, upper respiratory tract infection, sinusitis, rhinosinusitis, nasopharyngitis. viral pharyngitis, otitis media, otitis externa, pneumonia, bronchitis, viral cough syndrome, viral syndrome, and influenza.? Exam findings show no acute concerns or changes; patient is non-toxic appearing and is in no distress.? Patient is appropriate for outpatient treatment and follow-up. Differential Diagnosis Differential diagnosis: Likely upper respiratory infection, sinusitis, viral infection and other (cough) Lab Data Attestation: I reviewed the patient's lab results. Critical Care Time Critical Care Time Critical Care Time: No Discharge Plan Discharge Clinical Impression: Cough in adult patient Sinusitis Qualifiers: Sinusitis location: pansinusitis Chronicity: unspecified Qualified Code(s): J32.4 - Chronic pansinusitis Patient Disposition: Home, Self-Care Condition: Stable Instructions: Antibiotic Form, Sinusitis (ED), Acute Cough (ED) Additional Instructions: Increase fluids especially juices and water [id number] cough and cold medicine of your choice for your symptoms Zyrtec or Claritin daily and use Flonase nasal spray daily Steroids as directed--take with food heat to the face 20-30 minutes 4-6 times a day for pain Salt water gargles, throat lozenges or throat sprays as desired Antibiotic as directed--finished the medication If your symptoms persist, change or worsen significantly before you can contact your personal physician then please, without delay, go to the emergency department for further evaluation. Follow-up with PCP in 7-10 days or sooner if needed Follow up with PCP soon in regards to your blood pressure which is elevated above threshold for referral. Blood pressure above 120/80 may indicate pre-hypertension.138/72 Patient Language: Icelandic Prescriptions: New amoxicillin-pot clavulanate 875-125 mg tablet 1 tablet PO Q12H Qty: 20 0RF Rx Instructions: take all doses with food recommend eating activia yogurt or taking a probiotic while on this medication methylprednisolone [Medrol (Tucker)] 4 mg tablets,dose pack See Rx Instructions .ROUTE .COMPLEX Qty: 21 0RF Rx Instructions: orally per package directions fluticasone propionate [Flonase Allergy Relief] 50 mcg/actuation spray,suspension 2 spray intranasal DAILY Qty: 16 0RF Rx Instructions: administer into each nostril No Action DHA 200 mg capsule PO Follow-up/Referrals: PHYSICIAN,HELIUM ARC WELDER [Primary Care Provider] - Time of Disposition: 14:08 Quality [place] Coma Scale Eyes: Open Verbal: Oriented and Alert Motor: Follows Commands [place] Coma Total Score: 15
== END 2024-06-27 14:19 | disposition home or self-care (01) ==
PROVIDERS: Emergency Provider Registered Nurse
DX: R05.9 Cough, unspecified (principal); J32.4 Chronic pansinusitis
CPT/HCPCS: 99213; G0463